=== PATIENT | male | born 1975 | race African-American/Black ===

== ENCOUNTER 2017-12-07 19:59 | Emergency (ER) | payer OTHER ==
[~2017-12-07] VITALS: Ht 182.9 cm; Wt 90.7 kg
[~2017-12-07 19:59] MED LIST: ACETAMINOPHEN-1 EAC1 PO; ADVAIR HFA115 MCG/21 INH; ADVAIRDISKUS; ALBUTEROL2.5 MG/31 INH; BACTRIM DS TAB1 EACH PO; CIPROFLOXACIN500 M1 PO; DOXYCYCLINE 10100 MG PO; FLAGYL500 MG PO; HYDROXYZINE HCL25 M1 PO; KEFLEX500 MG PO; MACROBID; MEDROLDOSEPACK PO; PREDNISONE 20 M20 MG PO; PROMETHAZINE D480 ML PO; VENTOLIN HFA 1818 GM INH; VENTOLIN17 GM; VICODIN 5-5001 EACH PO; ZPAK PO
[2017-12-07] MEDS ORDERED: ADVAIR HFA 230M12 GM INH (20:05)
[2017-12-07] MEDS ORDERED: ALBUTEROL2.5 MG/31 INH (20:32)
[2017-12-07] MEDS ORDERED: KEFLEX500 M1 PO (20:32)
[2017-12-07] MEDS ORDERED: PREDNISONE 20 M20 MG PO (20:32)
[2017-12-07 20:55] VITALS: BP 121/66
== END 2017-12-07 20:55 | disposition home or self-care (01) ==
LOC: M.ERS 19:59
DX: J45.901 Unspecified asthma with (acute) exacerbation (principal); F17.210 Nicotine dependence, cigarettes, uncomplicated; Z88.1 Allergy status to other antibiotic agents; Z88.8 Allergy status to other drugs, medicaments and biological substances

== ENCOUNTER 2018-12-21 21:52 | Emergency (ER) | payer OTHER ==
[~2018-12-21] VITALS: Ht 182.9 cm; Wt 90.7 kg
[~2018-12-21 21:52] MED LIST changes: +ADVAIR HFA 230M12 GM INH; +KEFLEX500 M1 PO
[2018-12-21 23:03] LABS: URINE BILIRUBIN NEGATIVE (Negative); URINE BLOOD 1+ (Negative); URINE CLARITY CLEAR; URINE COLOR YELLOW; URINE GLUCOSE-RANDOM NEGATIVE (Negative); URINE KETONES NEGATIVE (Negative); URINE LEUKOCYTES-REFLEX NEGATIVE (Negative); URINE NITRITE-REFLEX NEGATIVE (Negative); URINE PROTEIN NEGATIVE (Negative); URINE UROBILINOGEN 0.2 E.U./dl (0.2-1.0)
[2018-12-21 23:13] LABS: BACTERIA-REFLEX 1-9 Few /HPF (None Seen); CASTS None Seen /LPF (None Seen); CRYSTALS None Seen /LPF (None Seen); SQUAMOUS NONE SEEN /LPF (0-3); URINE RBC 0-2 Rare /HPF (0-2); URINE WBC-REFLEX 0-5 Rare /HPF (0-5)
[2018-12-21] MEDS ORDERED: ROBAXIN500 MG PO (23:26)
[2018-12-21] MEDS ORDERED: MEDROLDOSEPACK PO (23:26)
[2018-12-21] MEDS ORDERED: ACETAMINOPHEN-1 EAC1 PO (23:26)
[2018-12-21 23:35] VITALS: BP 127/70
[2018-12-22] MEDS ORDERED: ALBUTEROL2.5 MG/31 INH (00:06)
[2018-12-22] MEDS ORDERED: PROAIR HFA8.5 GM INH (00:06)
== END 2018-12-21 23:36 | disposition home or self-care (01) ==
LOC: M.ERS 21:52
PROVIDERS: Physician Assistant
DX: M54.5 Low back pain (principal); R31.9 Hematuria, unspecified; Z76.0 Encounter for issue of repeat prescription; F17.200 Nicotine dependence, unspecified, uncomplicated; J45.909 Unspecified asthma, uncomplicated; Z88.1 Allergy status to other antibiotic agents; Z88.2 Allergy status to sulfonamides; Z88.8 Allergy status to other drugs, medicaments and biological substances; Z86.718 Personal history of other venous thrombosis and embolism

== ENCOUNTER 2019-04-25 08:28 | Emergency (ER) | payer OTHER ==
[~2019-04-25] VITALS: Ht 182.9 cm; Wt 88.5 kg
[~2019-04-25 08:28] MED LIST changes: +PROAIR HFA8.5 GM INH; +ROBAXIN500 MG PO
[2019-04-25] MEDS ORDERED: CYCLOBENZAPRINE5 MG PO (09:10)
[2019-04-25] MEDS ORDERED: HYDROCODON-ACE1 EAC7 PO (09:10)
[2019-04-25] MEDS ORDERED: TORADOL 10 MG T10 MG PO (09:10)
[2019-04-25 09:25] VITALS: BP 127/69
== END 2019-04-25 09:25 ==
LOC: M.ERS 08:28
DX: M54.5 Low back pain (principal); J45.909 Unspecified asthma, uncomplicated; Z86.718 Personal history of other venous thrombosis and embolism; Z86.711 Personal history of pulmonary embolism; Z88.1 Allergy status to other antibiotic agents; Z88.2 Allergy status to sulfonamides